=== PATIENT | male | born 1945 | race Caucasian/White ===

== ENCOUNTER 2016-11-13 12:30 | Observation (INO) | payer MEDICARE, BC ==
[2016-11-13] VITALS (7 sets, daily range): BP systolic 99–114; BP diastolic 53–59; PULSE 69–82; RESP 16–20; TEMP 96.8–98.5; O2SAT 96–100
[~2016-11-13] VITALS: Ht 177.8 cm; Wt 92.3 kg
[~2016-11-13 12:30] MED LIST: ATOR40TA16 PO; CLON0.5T PO; CYAN100017 PO; FOLI400T PO; IPRAAER INH; METF850T PO; MILK200C; NADO20TA PO; OMEG100010; PANT40TA3 PO; VENL150C39 PO; VITA10007 PO; VITA400C5; VITA500030 CHEW; test strips
--- NOTE | 2016-11-13 12:44 | PD ---
Physical Exam Date Seen by Provider: Nov 13, 2016 Time Seen by Provider: 12:40 Narrative 71 YOWM ON [facility] FOR PORTAL VEIN THROMBOSIS . NOW RECTAL BLEEDING FOR 2-3 DAYS. H/O ORAL CA WITH POST NODES. SOME ABD CRAMPIMG 11/20. NO F/C, N/V. NO SYNCOPE. VSS. AWAITING BED PLACEMENT. Data Data Last Documented VS Vital Signs Date Time Temp Pulse Resp B/P Pulse Ox O2 Delivery O2 Flow Rate FiO2 11/13/16 12:35 97.5 82 20 99/57 96 Room Air [facility] Medical Record Reviewed: Yes Supervised Visit with SUDHA: Yes Abdi Moody Nov 13, 2016 12:44
[2016-11-13] MEDS ORDERED: SODIUM CHLORIDE 0.9% FLUSH 10 ML FLUSH IVF PRN (15:45)
[2016-11-13] MEDS ORDERED: ONDANSETRON HCL 4 MG/2 ML VIAL IVP ONE (15:45)
[2016-11-13] MEDS ORDERED: PANTOPRAZOLE SODIUM 40 MG VIAL IVP ONE (15:45)
--- NOTE | 2016-11-13 15:51 | PD ---
HPI Chief Complaint: GI Complaint Time Seen by Provider: 15:34 Travel History International Travel<30 days: No Contact w/Intl Traveler<30days: No Traveled to known affect area: No History of Present Illness HPI This patient comes to the emergency room because he has had liquid black stool for the last 3 days. He has history of frequent GI bleed. He has history of liver cirrhosis and quit drinking alcohol many years ago. He has esophageal varices and had endoscopy 1 month ago. He was not bleeding at the time. No bright red rectal bleeding. No hematemesis or vomiting. Severity is moderate. No alleviating factors. Duration 3 days. Patient takes Eliquis for history of portal vein thrombosis. PFSH Past Medical History Cancer: Yes Cardiovascular Problems: Yes (CARDIOMYOPATHY, STENT) Cirrhosis: Yes COPD: Yes Diabetes: Yes Endocrine: Yes Genitourinary: No Hepatitis: No Hiatal Hernia: No Immune Disorder: No Medical other: Yes (Blood clot portal vein) Musculoskeletal: Yes (SPINAL STENOSIS, ARTHRITIS) Neurologic: No Psychiatric: Yes (ANXIETY, DEPRESSION) Respiratory: Yes (COPD, SOB, PNEUMONIA, ON O2 2-3 L) Thyroid Disease: No Tetanus Vaccination: < 5 Years Influenza Vaccination: Yes ?: Not Past Surgical History Abdominal Surgery: Yes (PEG TUBE AND REMOVED, HERNIA REPAIR AND CLOSE TRACK FROM TUBE) AICD: No Body Medical Devices: STENT, VIDEO CAMERA PILL SWALLOWED 12/07/15 Cardiac Surgery: Yes (CARDIAC STENT) Eye Surgery: Yes (BILAT CATARACT SX) Joint Replacement: No Oral Surgery: Yes (oral CA) Pacemaker: No Social History Alcohol Use: No Tobacco Use: No Substance Use: No Allergies-Medications (Allergen,Severity, Reaction): Coded Allergies: No Known Allergies (Unverified , 11/13/16) Reported Meds & Prescriptions Reported Meds & Active Scripts Active Reported Budesonide Neb 0.5 Mg/2 Ml Neb 0.5 Mg NEB BID NEB Perforomist Neb (Formoterol Fumarate) 20 Mcg/2 Ml Neb 1 Nebule INH BID Cortizone-10 Eczema (Hydrocortisone (Topical)) 1 % Lot 1 Applic TOPICAL DAILY PRN Fish Oil ([place]-3 Fatty Acids) 1,200 Mg Cap 1,200 Mg PO DAILY Pradaxa (Dabigatran) 150 Mg Cap 150 Mg PO BID Milk Thistle 300 Mg Cap 300 Mg PO BID Clonazepam 0.5 Mg Tab 0.5 Mg PO DAILY PRN D 5000 (Cholecalciferol) 5,000 Unit Cap 5,000 Units PO DAILY Folic Acid 400 Mcg Tab 400 Mcg PO DAILY B-12 (Cyanocobalamin) 1,000 Mcg Cap 1,000 Mcg PO DAILY Combivent Respimat Inh (Ipratropium-Albuterol Inh) 20-100 Snf/Act Aero 1 Puff INH QID PRN Vitamin C (Ascorbic Acid) 1,000 Mg Tab 1,000 Mg PO Venlafaxine ER 24 HR (Venlafaxine HCl) 150 Mg Cap 150 Mg PO DAILY Pantoprazole (Pantoprazole Sodium) 40 Mg Tab 40 Mg PO BID PRN Nadolol 20 Mg Tab 20 Mg PO DAILY Metformin (Metformin HCl) 850 Mg Tab 850 Mg PO BIDPC With meals Atorvastatin (Atorvastatin Calcium) 40 Mg Tab 40 Mg PO HS Review of Systems General / Constitutional: No: Fever Eyes: No: Visual changes HENT: No: Headaches Cardiovascular: No: Chest Pain or Discomfort Respiratory: No: Shortness of Breath Gastrointestinal: Positive: Other (liquid black stool), No: Abdominal Pain Genitourinary: No: Dysuria Musculoskeletal: No: Pain Skin: No Rash Neurologic: No: Weakness Psychiatric: No: Depression Endocrine: No: Polydipsia Hematologic/Lymphatic: No: Easy Bruising Physical Exam Narrative GENERAL: Well-nourished, well-developed patient in no apparent distress. SKIN: Focused skin assessment reveals no rash and nodules. Skin is Warm and dry. HEAD: Atraumatic. Normocephalic. EYES: Pupils equal and round. No scleral icterus. No injection or drainage. ENT: No nasal bleeding or discharge. Mucous membranes pink and moist. NECK: Trachea midline. No JVD. CARDIOVASCULAR: Regular rate and rhythm. No murmur appreciated. RESPIRATORY: No accessory muscle use. Clear to auscultation. Breath sounds equal bilaterally. GASTROINTESTINAL: Abdomen soft, non-tender, nondistended. Hepatic and splenic margins not palpable. MUSCULOSKELETAL: No obvious deformities. No clubbing. No cyanosis. No edema. NEUROLOGICAL: Awake and alert. No obvious cranial nerve deficits. Motor grossly within normal limits. Normal speech. PSYCHIATRIC: Appropriate mood and affect; insight and judgment normal. Rectal: Normal tone, no mass. Black colored stool is present Data Data Last Documented VS Vital Signs Date Time Temp Pulse Resp B/P Pulse Ox O2 Delivery O2 Flow Rate FiO2 11/13/16 16:44 18 99 Nasal Cannula 2 11/13/16 15:19 98.5 69 113/53 Orders Basic Metabolic Panel (Bmp) (11/13/16 15:43) Complete Blood Count With Diff (11/13/16 15:43) Prothrombin Time / Inr (Pt) (11/13/16 15:43) Act Partial Throm Time (Ptt) (11/13/16 15:43) Type And Screen (11/13/16 15:43) Ecg Monitoring (11/13/16 15:43) Iv Access Insert/Monitor (11/13/16 15:43) Oximetry (11/13/16 15:43) Ondansetron Inj (Zofran Inj) (11/13/16 15:45) Pantoprazole Inj (Protonix Inj) (11/13/16 15:45) Sodium Chloride 0.9% Flush (Ns Flush) (11/13/16 15:45) Sodium Chlor 0.9% 1000 Ml Inj (Ns 1000 M (11/13/16 16:00) Admit Order (Ed Use Only) (11/13/16 17:22) Labs Laboratory Tests Test 11/13/16 16:30 White Blood Count 7.5 TH/MM3 Red Blood Count 3.16 MIL/MM3 Hemoglobin 10.2 GM/DL Hematocrit 30.8 % Mean Corpuscular Volume 97.3 FL Mean Corpuscular Hemoglobin 32.2 PG Mean Corpuscular Hemoglobin 33.1 % Concent Red Cell Distribution Width 17.4 % Platelet Count 103 TH/MM3 Mean Platelet Volume 7.8 FL Neutrophils (%) (Auto) 72.7 % Lymphocytes (%) (Auto) 17.2 % Monocytes (%) (Auto) 7.3 % Eosinophils (%) (Auto) 2.5 % Basophils (%) (Auto) 0.3 % Neutrophils # (Auto) 5.5 TH/MM3 Lymphocytes # (Auto) 1.3 TH/MM3 Monocytes # (Auto) 0.5 TH/MM3 Eosinophils # (Auto) 0.2 TH/MM3 Basophils # (Auto) 0.0 TH/MM3 CBC Comment DIFF FINAL Differential Comment Prothrombin Time 11.7 SEC Prothromb Time International 1.1 RATIO Ratio Activated Partial 25.4 SEC Thromboplast Time Sodium Level 139 MEQ/L Potassium Level 4.3 MEQ/L Chloride Level 106 MEQ/L Carbon Dioxide Level 25.9 MEQ/L Anion Gap 7 MEQ/L Blood Urea Nitrogen 21 MG/DL Creatinine 0.63 MG/DL Estimat Glomerular Filtration 126 ML/MIN Rate Random Glucose 104 MG/DL Calcium Level 9.3 MG/DL [facility] Medical Decision Making Medical Screen Exam Complete: Yes Emergency Medical Condition: Yes Medical Record Reviewed: Yes Differential Diagnosis Variceal bleeding, gastric ulcer, esophagitis Narrative Course I have reviewed the patient's electronic medical record. Reviewed his endoscopy from November [address] Darnell IV placed CBC shows hemoglobin of 10.2 and platelet count of 103 Metabolic profile is normal Coagulation studies are normal but he takes a blood thinner I gave him IV Zofran and IV Protonix and 1 L normal saline IV Has Hemoccult positive stool On recheck he is doing okay but will require admission given the fact that he has a GI bleed and is on a blood thinner and has mild anemia and also mild thrombocytopenia [facility] Internal Pos. & Neg. Controls: Passed Fecal Specimen Occult Blood: Positive Diagnosis Primary Impression: GI bleed Qualified Code: K92.2 - Gastrointestinal hemorrhage, unspecified gastrointestinal hemorrhage type Additional Impression: Cirrhosis of liver Qualified Code: K70.30 - Alcoholic cirrhosis of liver without ascites Admitting Information Admitting Physician Requests: Admit Alex Gross MD Nov 13, 2016 15:51
[2016-11-13] MEDS ORDERED: SODIUM CHLOR 0.9% 1000 ML INJ 1,000 ML IV ONE (16:00)
[2016-11-13 16:43] LABS: AUTOMATED NEUTROPHIL # 5.5 TH/MM3 (1.8-7.7); BASOPHIL % 0.3 % (0.0-2.0); EOSINOPHIL # 0.2 TH/MM3 (0-0.4); EOSINOPHIL % 2.5 % (0.0-4.0); HEMATOCRIT 30.8 % (39.0-51.0); HEMO FLAGS DIFF FINAL; LYMPH % 17.2 % (9.0-44.0); LYMPHOCYTE # 1.3 TH/MM3 (1.0-4.8); MEAN CELL VOLUME 97.3 FL (80.0-100.0); MEAN CORPUSCULAR HEMOGLOBIN 32.2 PG (27.0-34.0); MEAN CORPUSCULAR HGB CONC 33.1 % (32.0-36.0); MONO % 7.3 % (0.0-8.0); NEUT % 72.7 % (16.0-70.0); PLATELET COUNT 103 TH/MM3 (150-450); RED BLOOD COUNT 3.16 MIL/MM3 (4.50-5.90); RED CELL DISTRIBUTION WIDTH 17.4 % (11.6-17.2); WHITE BLOOD COUNT 7.5 TH/MM3 (4.0-11.0)
[2016-11-13 17:00] LABS: APTT (PATIENT) 25.4 SEC (24.3-30.1); INTERNATIONAL NORMALIZED RATIO 1.1 RATIO; PROTHROMBIN TIME - PATIENT 11.7 SEC (9.8-11.6)
[2016-11-13] MEDS ORDERED: CLON0.5T PO (17:02)
[2016-11-13] MEDS ORDERED: D 50CAP PO (17:02)
[2016-11-13] MEDS ORDERED: MILK300C PO (17:05)
[2016-11-13 17:07] LABS: BICARBONATE 25.9 MEQ/L (21.0-32.0); POTASSIUM 4.3 MEQ/L (3.5-5.1)
[2016-11-13] MEDS ORDERED: PRAD150C PO (17:11)
[2016-11-13] MEDS ORDERED: FISH120014 PO (17:18)
[2016-11-13] MEDS: SODIUM CHLOR 0.9% 1000 ML INJ 1,000 ML IV SCH ×3 (17:20→17:54)
[2016-11-13] MEDS ORDERED: FORM20NE NEB (17:21)
[2016-11-13] MEDS ORDERED: BUDE0.5S NEB (17:21)
[2016-11-13] MEDS ORDERED: CORTLOT TOPICAL (17:21)
[2016-11-13] MEDS ORDERED: ACETAMINOPHEN/HYDROcodone 325 MG/5 MG TAB PO PRN (17:30)
[2016-11-13] MEDS ORDERED: VENO20IN IV (17:30)
[2016-11-13] MEDS ORDERED: DOCUSATE SODIUM 100 MG CAP PO PRN (17:30)
[2016-11-13] MEDS ORDERED: ACETAMINOPHEN/HYDROcodone 325 MG/7.5 MG TAB PO PRN (17:30)
[2016-11-13] MEDS ORDERED: SODIUM CHLORIDE 0.9% FLUSH 10 ML FLUSH IV FLUSH PRN (17:30)
[2016-11-13] MEDS ORDERED: ONDANSETRON HCL 4 MG/2 ML VIAL IVP PRN (17:30)
[2016-11-13] MEDS ORDERED: ACETAMINOPHEN 325 MG TAB PO PRN (17:30)
[2016-11-13] MEDS ORDERED: NALOXONE HCL 0.4 MG/ML AMP IV PRN (17:30)
[2016-11-13] MEDS ORDERED: MORPHINE SULFATE 4 MG/ML INJ IV PRN (17:30)
--- NOTE | 2016-11-13 17:38 | HHI.HP ---
HPI Service [facility] Primary Care Physician Gabriela Giles MD Admission Diagnosis gi bleed, cirrhosis Diagnoses: Chief Complaint: GI bleeding Travel History International Travel<30 Days: No Contact w/Intl Traveler <30 Da: No Traveled to Known Affected Are: No History of Present Illness 71-year-old male with history of Liver cirrhosis, Esophageal varices, Portal vein thrombosis on Eliquis, Anemia, Oral cancer s/p resection/radiation, COPD, Chronic Respiratory Failure on 3L NC, Diabetes mellitus, CAD with stent, Arthritis, Anxiety/depression, presents with a 3 day history of liquid black stools. Denies any bright red rectal bleeding. He's been experiencing intermittent lower abdominal pain described as mild cramping. Denies any nausea/ vomiting or hematemesis. He has a history of esophageal varices and has prior history of GI bleeding. His last endoscopy was 1 month ago and the patient was not bleeding at that time. He is currently on Eliquis for portal vein thrombosis however reportedly his lab director Dr. Gresham at [facility] was supposed to change him from Eliquis to Pradaxa today. He denies taking any NSAIDs. Since his arrival to the ED, hemoglobin 10.2, hemoccult positive in the ED. The patient is known to [facility], Dr. Hendrix. He has no other medical complaints at this time. Review of Systems Except as stated in HPI: all other systems reviewed are Neg Past Family Social History Past Medical History Liver cirrhosis Esophageal varices Portal vein thrombosis Oral cancer s/p resection, radiation, short course of chemo in 2012 COPD Chronic respiratory failure on 3L NC Diabetes mellitus CAD with stent in 2004 Arthritis Anxiety/depression Anemia on iron infusions at [facility] Past Surgical History Peg tube placement and removal Hernia repair Cardiac stent Bilateral cataract surgery Oral Cancer Resection Endoscopies Reported Medications [place] 3 1000 mg ([place]-3 Fatty Acids) 1 Cap Cap Milk Thistle 200 Mg Cap Folic Acid 400 Mcg Tab 400 Mcg PO DAILY E-400 (Vitamin E) 400 Unit Cap B-12 (Cyanocobalamin) 1,000 Mcg Cap 1,000 Mcg PO DAILY Combivent Respimat Inh (Ipratropium-Albuterol Inh) 20-[address] Half-[address]/Act Aero 1 Puff INH QID Vitamin D3 (Cholecalciferol) 5,000 Unit Chew 5,000 Units CHEW DAILY Vitamin C (Ascorbic Acid) 1,000 Mg Tab 1,000 Mg PO Venlafaxine ER 24 HR (Venlafaxine HCl) 150 Mg Cap 150 Mg PO DAILY Pantoprazole (Pantoprazole Sodium) 40 Mg Tab 40 Mg PO BID PRN Nadolol 20 Mg Tab 20 Mg PO DAILY Metformin (Metformin HCl) 850 Mg Tab 850 Mg PO BIDPC With meals Atorvastatin (Atorvastatin Calcium) 40 Mg Tab 40 Mg PO HS Allergies: Coded Allergies: No Known Allergies (Unverified , 11/13/16) Active Ordered Medications Current Medications Medications (Trade) Dose Ordered Sig/Felicia Route Start Time Stop Time Status Last Admin Sodium Chloride 2 ml 2 ml UNSCH PRN IVF 11/13/16 15:45 (NS 1000 ml Inj) 1,000 ml @ 100 mls/hr Q10H IV 11/13/16 17:20 UNV (NS Flush) 2 ml UNSCH PRN IV FLUSH 11/13/16 17:30 UNV (NS Flush) 2 ml BID IV FLUSH 11/13/16 21:00 UNV (Zofran Inj) 4 mg Q6H PRN IVP 11/13/16 17:30 UNV (Colace) 100 mg Q12H PRN PO 11/13/16 17:30 UNV (Tylenol) 650 mg Q6H PRN PO 11/13/16 17:30 UNV ([place] 5-325 Mg) 1 tab Q6H PRN PO 11/13/16 17:30 UNV ([place] 7.5-325 Mg) 1 tab Q6H PRN PO 11/13/16 17:30 UNV (Morphine Inj) 2 mg Q4H PRN IV 11/13/16 17:30 UNV (Narcan Inj) 0.4 mg UNSCH PRN IV 11/13/16 17:30 UNV Family History Father with [place], heart disease, in his mid 60s Mother with cancer, possibly melanoma, in her mid 70s Social History Denies any tobacco, alcohol, or illicit drug use. Physical Exam Vital Signs Vital Signs Date Time Temp Pulse Resp B/P Pulse Ox O2 Delivery O2 Flow Rate FiO2 11/13/16 16:44 18 99 Nasal Cannula 2 11/13/16 15:19 16 11/13/16 15:19 98.5 69 16 113/53 99 Nasal Cannula 2 11/13/16 12:35 97.5 82 20 99/57 96 Room Air Physical Exam GENERAL: Well-nourished, well-developed pleasant male patient in NAD. SKIN: Warm and dry. No rash. HEAD: Normocephalic. Atraumatic. EYES: Pupils equal and round. No scleral icterus. No injection or drainage. ENT: No nasal bleeding or discharge. Mucous membranes pink and moist. NECK: Supple. Trachea midline. Prior surgical scarring and skin flap at midline. CARDIOVASCULAR: Regular rate and rhythm. S1, S2 noted. No murmur appreciated. RESPIRATORY: No accessory muscle use. Fair air entry bilaterally, Clear to auscultation. Breath sounds equal bilaterally. GASTROINTESTINAL: Abdomen soft, nondistended, tympanic abdomen, mild epigastric and diffuse lower abdominal TTP. Normoactive bowel sounds x4. MUSCULOSKELETAL: No obvious deformities. Extremities without clubbing, cyanosis , or edema. NEUROLOGICAL: Awake and alert. No obvious cranial nerve deficits. Motor grossly within normal limits. Moves all extremities spontaneously. Normal speech. PSYCHIATRIC: Appropriate mood and affect; insight and judgment normal. Laboratory Laboratory Tests Test 11/13/16 16:30 White Blood Count 7.5 Red Blood Count 3.16 Hemoglobin 10.2 Hematocrit 30.8 Mean Corpuscular Volume 97.3 Mean Corpuscular Hemoglobin 32.2 Mean Corpuscular Hemoglobin 33.1 Concent Red Cell Distribution Width 17.4 Platelet Count 103 Mean Platelet Volume 7.8 Neutrophils (%) (Auto) 72.7 Lymphocytes (%) (Auto) 17.2 Monocytes (%) (Auto) 7.3 Eosinophils (%) (Auto) 2.5 Basophils (%) (Auto) 0.3 Neutrophils # (Auto) 5.5 Lymphocytes # (Auto) 1.3 Monocytes # (Auto) 0.5 Eosinophils # (Auto) 0.2 Basophils # (Auto) 0.0 CBC Comment DIFF FINAL Differential Comment Prothrombin Time 11.7 Prothromb Time International 1.1 Ratio Activated Partial 25.4 Thromboplast Time Sodium Level 139 Potassium Level 4.3 Chloride Level 106 Carbon Dioxide Level 25.9 Anion Gap 7 Blood Urea Nitrogen 21 Creatinine 0.63 Estimat Glomerular Filtration 126 Rate Random Glucose 104 Calcium Level 9.3 Result Diagram: 11/13/16 1630 11/13/16 1630 Assessment and Plan Assessment and Plan 71-year-old male with history of Liver cirrhosis, Esophageal varices, Portal vein thrombosis on Eliquis, Anemia, Oral cancer s/p resection/radiation, COPD, Chronic Respiratory Failure on 3L NC, Diabetes mellitus, CAD with stent, Arthritis, Anxiety/depression, presents with a 3 day history of liquid black stools. GI Bleeding: black liquid stools. Possible esophageal varices bleed. Hemoccult positive in the ED. -Hold patient's Eliquis. -Hgb 10.2, monitor serial H&H q6h. Transfuse if Hgb < 8.0 -Clear liquid diet for now, NPO after midnight. -Start IV Protonix 40mg bid, plan to change to drip if patient's hemoglobin drops or he develops hematemesis consider Octreotide -Continue patient's Nadalol if BP permits (hold if SBP < 110) -Consult patient's lead dental assistant Dr. Ruma Lawson on Chronic Anemia: Hgb 10.2. Secondary to GI bleeding as above. Patient with hx of iron deficient anemia, sees [facility] Dr. Gresham, receives outpatient IV iron infusions -monitor H&H as above -transfuse if Hgb < 8.0 -continue outpatient f/up with hematology Portal Vein Thrombosis: managed by lab director Dr. Gresham, reportedly supposed to switch from Eliquis to Pradaxa today -holding anticoagulation with GI bleeding as above -restart anticoagulation only when cleared by GI -continue outpatient f/up with hematology Liver Cirrhosis: chronic -monitor LFTs COPD, Chronic Respiratory Failure on 3L NC: chronic, stable -continue patient's budesonide and formoterol nebs bid -duonebs prn -continue O2 Diabetes Mellitus: chronic, hold patient's metformin for now -monitor Accu-cheks, cover with SSI. CAD/Hypertension/Hyperlipidemia: chronic -continue patient's statin and nadolol (with hold parameters) -patient does not take aspirin Depression: chronic -continue patient's Venlafaxine DVT Prophylaxis: teds/SCDs, avoid chemical prophylaxis with GI bleeding. Written by Nadia Price, acting as scribe for Dr. Walter on 11/13/16 at 17:48. Discussed Condition With Patient, ER MD Physician Certification 2 Midnight Certification Type: Admission for Inpatient Services Order for Inpatient Services The services are ordered in accordance with Medicare regulations or non- Medicare payer requirements, as applicable. In the case of services not specified as inpatient-only, they are appropriately provided as inpatient services in accordance with the 2-midnight benchmark. Estimated LOS (days): 3 days is the estimated time the patient will need to remain in the hospital, assuming treatment plan goals are met and no additional complications. Post-Hospital Plan: Home Nadia Price PA-C Nov 13, 2016 5:38 pm
[2016-11-13] MEDS ORDERED: HYDROCORTISONE 1% LOTN 120 ML BTL TOPICAL PRN (18:15)
[2016-11-13] MEDS ORDERED: clonazePAM 0.5 MG TAB PO PRN (18:15)
[2016-11-13] MEDS ORDERED: RESP: ALBUTEROL 2.5 MG/IPRATROPIUM 0.5 MG NEB (PRN) NEB (18:30)
[2016-11-13] MEDS ORDERED: GLUCAGON 1 MG/ML VIAL OTHER PRN (18:30)
[2016-11-13] MEDS ORDERED: DEXTROSE 50% IN WATER 50 ML VIAL(D50) IV PUSH PRN (18:30)
[2016-11-13] MEDS ORDERED: FORMOTEROL 20 MCG NEB SCH (20:00)
[2016-11-13] MEDS: RESP: BUDESONIDE 0.5 MG/2 ML NEB NEB SCH (20:06)
[2016-11-13] MEDS: SODIUM CHLORIDE 0.9% FLUSH 10 ML FLUSH IV FLUSH SCH (21:00)
[2016-11-13] MEDS: [UNRECOGNIZED DRUG - OTHER] INH SCH (21:00)
[2016-11-13] MEDS: INSULIN ASPART SUPPLEMENTAL SCALE SQ SCH (21:00)
[2016-11-13] MEDS: ATORVASTATIN 40 MG TAB PO SCH (21:54)
[2016-11-13] MEDS: NADOLOL 20 MG TAB PO SCH (21:54)
[2016-11-13 23:04] LABS: HEMATOCRIT 25.8 % (39.0-51.0)
[2016-11-13 23:06] LABS: REVIEW FLAG FINAL
[2016-11-14] VITALS (8 sets, daily range): BP systolic 94–110; BP diastolic 54–69; PULSE 68–77; RESP 16–18; TEMP 96.2–97.7; O2SAT 97–100
[2016-11-14] MEDS: PANTOPRAZOLE SODIUM 40 MG VIAL IV PUSH SCH ×2 (05:00→17:00)
[2016-11-14] MEDS: INSULIN ASPART SUPPLEMENTAL SCALE SQ SCH ×4 (05:24→20:16)
[2016-11-14 05:52] LABS: AUTOMATED NEUTROPHIL # 2.6 TH/MM3 (1.8-7.7); BASOPHIL % 0.7 % (0.0-2.0); EOSINOPHIL # 0.2 TH/MM3 (0-0.4); EOSINOPHIL % 4.2 % (0.0-4.0); HEMATOCRIT 25.7 % (39.0-51.0); LYMPH % 21.4 % (9.0-44.0); LYMPHOCYTE # 0.9 TH/MM3 (1.0-4.8); MEAN CELL VOLUME 97.4 FL (80.0-100.0); MEAN CORPUSCULAR HEMOGLOBIN 33.7 PG (27.0-34.0); MEAN CORPUSCULAR HGB CONC 34.6 % (32.0-36.0); MONO % 8.3 % (0.0-8.0); NEUT % 65.4 % (16.0-70.0); PLATELET COUNT 80 TH/MM3 (150-450); RED BLOOD COUNT 2.64 MIL/MM3 (4.50-5.90); RED CELL DISTRIBUTION WIDTH 17.3 % (11.6-17.2)
[2016-11-14 06:05] LABS: HEMO FLAGS AUTO DIFF
[2016-11-14] MEDS: PANTOPRAZOLE INJ 80 MG in SODIUM CHLORIDE 0.9% INJ 100 ML IV PRN ×2 (06:16→22:52)
[2016-11-14 06:22] LABS: ALKALINE PHOSPHATASE 85 U/L (45-117); ALT (GPT) 41 U/L (12-78); ANION GAP 9 MEQ/L (5-15); AST (GOT) 30 U/L (15-37); BICARBONATE 24.3 MEQ/L (21.0-32.0); BLOOD UREA NITROGEN 13 MG/DL (7-18); CHLORIDE 110 MEQ/L (98-107); GLOMERULAR FILTRATION RATE 129 ML/MIN (>89); POTASSIUM 3.7 MEQ/L (3.5-5.1); SODIUM (NA) 143 MEQ/L (136-145); TOTAL BILIRUBIN ADULT 0.6 MG/DL (0.2-1.0)
[2016-11-14 07:55] LABS: ACANTHOCYTES OCC (NORMAL); KERATOCYTES OCC (NORMAL); OVALOCYTES 1+ (NORMAL); PLATELET ESTIMATE SMEAR LOW (NORMAL); PLATELET MORPHOLOGY NORMAL (NORMAL); SCAN/DIFF AUTO DIFF CONFIRMED
[2016-11-14] MEDS: RESP: BUDESONIDE 0.5 MG/2 ML NEB NEB SCH ×2 (08:47→20:27)
[2016-11-14] MEDS: [UNRECOGNIZED DRUG - OTHER] INH SCH ×2 (09:00→21:00)
[2016-11-14] MEDS: SODIUM CHLORIDE 0.9% FLUSH 10 ML FLUSH IV FLUSH SCH ×2 (09:00→20:17)
--- NOTE | 2016-11-14 09:30 | MB ---
cc: LAURO VIEYRA M.D., GREGORY J. M.D. KIM, KIRSTEN R. MD DATE OF CONSULTATION: 11/14/2016 DATE OF : 1945 HISTORY OF PRESENT ILLNESS The patient is a 71-year-old white male I was asked to see for further evaluation and management of GI bleeding. He has a history of cirrhosis, presumably due to alcohol. He has had esophageal varices and has had documented portal vein thrombosis this past April. He was started on Eliquis about a month ago by his auto hiker [place] [facility]. Four days ago he began experiencing melena with lightheadedness. He stopped taking the Eliquis 2 days ago. He came in yesterday because of melanotic stool and lightheadedness. The bleeding seems to have slowed. He has passed only a scant amount of black thicker stool compared to the black thin liquid he had been passing. PAST MEDICAL HISTORY The medical history is otherwise significant for: 1. Oral cancer status post resection and radiation. 2. COPD, require 3 liters nasal cannula chronically. 3. Diabetes mellitus. 4. Coronary artery disease, status post stenting. 5. Arthritis. 6. Anxiety. 7. Depression. PAST SURGICAL HISTORY 1. PEG tube placement and removal. 2. Herniorrhaphy. 3. Cardiac stent. 4. Cataract surgery. 5. Oral cancer with resection. 6. Multiple endoscopic procedures, the most recent of which was October 09, 2016. This showed portal hypertensive gastropathy. MEDICATIONS Medications on admission: 1. [place]-3. 2. Milk thistle. 3. Folic acid 400 mcg daily. 4. Vitamin-E 400 units daily. 5. B12. 6. Combivent. 7. Vitamin-D3. 8. Vitamin-C. 9. Venlafaxine. 10.Pantoprazole 40 mg b.i.d. p.r.n. 11.Nadolol 20 mg daily. 12.Metformin 850 mg b.i.d. 13.Atorvastatin 40 mg daily. ALLERGIES None known to medications. SOCIAL HISTORY Tobacco use none. Alcohol use none since the . FAMILY HISTORY Heart disease and melanoma. REVIEW OF SYSTEMS No history of seizures or strokes. No vision difficulties. He has had the lightheadedness. No chest pains. No change in his chronic dyspnea and no recent coughing, out of the ordinary. No abdominal pain. No urologic symptoms. No history of pancreatic disease or thyroid disease. He has had no rashes or joint pains of any sort. PHYSICAL EXAMINATION VITAL SIGNS: Weight is 90.3 kg. Temperature 97.6, pulse 68, respiratory rate 18, blood pressure 106/69. Saturation 98% on two liters. GENERAL: He is alert. He is oriented x3. HEENT: He is anicteric. Extraocular motions are intact. There is deformation of the jaw, especially on the left. LYMPH NODES: I appreciate no submandibular, cervical, supraclavicular, axillary or epitrochlear adenopathy. LUNGS: Clear to auscultation. HEART: Regular rate and rhythm with no gross murmur or gallop. ABDOMEN: Good bowel sounds. No bruit. The abdomen is soft with very mild epigastric tenderness. No masses or hepatosplenomegaly are noted. EXTREMITIES: No pedal edema, Dupuytren's contractures or palmar erythema. RECTAL: Good sphincter tone. No masses, no tenderness, and only a scant amount of black very soft stool that tests hemoccult positive. LABORATORY Laboratory studies on admission yesterday afternoon: White count 7.5, hemoglobin 10.2, MCV 97.3, platelets 103. Yesterday evening hemoglobin 9.0 and this morning at 5 o'clock hemoglobin 8.9, platelets 80,000. INR on admission was 1.1 yesterday. Today sodium is 143, potassium 3.7, BUN 13, creatinine 0.62. Yesterday the BUN was 21 with a creatinine of 0.63. Liver enzymes today are normal. Albumin is low at 2.8. IMAGING No radiologic studies have been performed. IMPRESSION/RECOMMENDATIONS Melena, in this patient who has been taking Eliquis because of a portal vein thrombus. He took the medication for one month and stopped because of the recent bleeding. The hemoglobin had dropped a bit and has stabilized. His BUN to creatinine ratio has improved, suggesting no active upper GI bleeding at this time. Based on his previous endoscopy June 08 he has portal hypertensive gastropathy. I suspect the recent bleed is likely related to the same process. There is no indication for a follow-up panendoscopy at this time. I will check with radiology to see what would be the most appropriate study to evaluate the portal vein at this point, whether it should be a CT, an ultrasound or an MRI. The patient's MELD score at this point is 7. When I spoke to the emergency room nurse last evening between 1800 and 1815 I had ordered a Sandostatin bolus followed by a drip. There is no mention in the chart of this conversation or the ordering of that product. I will talk to the people in the emergency room now to find out what happened. At this point, fortunately, there is no need for this product. Protonix IV has been started. This may be changed to the oral formulation and he may start a clear liquid diet. Will follow along closely. MD KADEEM Gudino/CHAPINCITO /8:28 AM /9:13 AM
[2016-11-14] MEDS ORDERED: DIATRIZOATE MEGLUM/DIATRIZOATE SOD 9 ML CUP PO ONE (11:00)
[2016-11-14 11:05] LABS: HEMATOCRIT 27.9 % (39.0-51.0)
[2016-11-14 11:06] LABS: REVIEW FLAG FINAL
[2016-11-14] MEDS: SODIUM CHLOR 0.9% 1000 ML INJ 1,000 ML IV SCH (11:15)
[2016-11-14] MEDS: VENLAFAXINE HCL XR 75 MG CAP PO SCH (11:17)
--- NOTE | 2016-11-14 14:14 | HHI.PR ---
Subjective Remarks Resting in bed comfortably, at the bedside He reported 3 black bowel movement, the nurse was not aware of Hemoglobin stable, I discussed with patient and his the nurse and with our [facility] Patient going for CT scan of the abdomen to follow up on the portal vein thrombosis Objective Vitals Vital Signs Date Time Temp Pulse Resp B/P Pulse Ox O2 Delivery O2 Flow Rate FiO2 11/14/16 12:00 96.2 72 16 110/61 97 11/14/16 08:50 99 Nasal Cannula 2.00 11/14/16 08:00 96.8 73 16 95/57 100 11/14/16 04:00 97.6 68 18 106/69 98 11/14/16 00:00 96.7 68 18 94/57 100 11/13/16 21:32 97 Nasal Cannula 2.00 11/13/16 20:30 96.8 69 17 107/59 100 11/13/16 19:59 98.4 69 16 108/54 97 11/13/16 18:09 69 16 114/54 96 11/13/16 16:44 18 99 Nasal Cannula 2 11/13/16 15:19 16 11/13/16 15:19 98.5 69 16 113/53 99 Nasal Cannula 2 I/O 11/13/16 11/13/16 11/13/16 11/14/16 11/14/16 11/14/16 07:00 15:00 23:00 07:00 15:00 23:00 Intake Total 100 ml Balance 100 ml Intake IV Total 100 ml # Voids 1 2 Result Diagram: 11/14/16 1021 11/14/16 0500 Objective Remarks GENERAL: This is a well-nourished, well-developed patient, in no apparent distress. SKIN: No rashes, warm and dry HEAD: Atraumatic. Normocephalic. EYES: Pupils equal round and reactive. Extraocular motions intact. No scleral icterus. ENT: Nose without bleeding, or drainage, Airway patent. NECK: Trachea midline. Supple CARDIOVASCULAR: Regular rate and rhythm without murmurs, gallops, or rubs. RESPIRATORY: Fair air entry bilaterally. No wheezes, rales, or rhonchi. GASTROINTESTINAL: Abdomen soft, no significant tenderness today, nondistended. Positive bowel sounds MUSCULOSKELETAL: Extremities without clubbing, cyanosis, or edema. Pedal pulses appreciated NEUROLOGICAL: Awake and alert. Moves all extremity. Normal speech.no focal neurological deficit A/P Assessment and Plan 71-year-old male with history of Liver cirrhosis, Esophageal varices, Portal vein thrombosis on Eliquis, Anemia, Oral cancer s/p resection/radiation, COPD, Chronic Respiratory Failure on 3L NC, Diabetes mellitus, CAD with stent, Arthritis, Anxiety/depression, presents with a 3 day history of liquid black stools. GI Bleeding: black liquid stools. Possible esophageal varices bleed. Hemoccult positive in the ED. -Hold patient's Eliquis. -Hgb 10.2, monitor serial H&H q6h. Transfuse if Hgb < 8.0 -Clear liquid diet for now, NPO after midnight. -Start IV Protonix 40mg bid, plan to change to drip if patient's hemoglobin drops or he develops hematemesis consider Octreotide -Continue patient's Nadalol if BP permits (hold if SBP < 110) -Appreciate patient's er nurse Dr. Hendrix consult, recommend CT abdomen to follow up on the portal thrombosis will defer decision to stop Eliquis indefinitely for him, continue monitoring H&H, plan to switch to by mouth Protonix if stable Acute on Chronic Anemia: Hgb 10.2. Secondary to GI bleeding as above. Patient with hx of iron deficient anemia, sees [facility] Dr. Gresham, receives outpatient IV iron infusions -monitor H&H as above -transfuse if Hgb < 8.0 -continue outpatient f/up with hematology Portal Vein Thrombosis: managed by card dealer Dr. Gresham, reportedly supposed to switch from Eliquis to Pradaxa today -holding anticoagulation with GI bleeding as above -CT abdomen to follow up, decision on resuming anticoagulation per GI Liver Cirrhosis: chronic -monitor LFTs COPD, Chronic Respiratory Failure on 3L NC: chronic, stable -continue patient's budesonide and formoterol nebs bid -duonebs prn -continue O2 Diabetes Mellitus: chronic, hold patient's metformin for now -monitor Accu-cheks, cover with SSI. CAD/Hypertension/Hyperlipidemia: chronic -continue patient's statin and nadolol (with hold parameters) -patient does not take aspirin Depression: chronic -continue patient's Venlafaxine DVT Prophylaxis: teds/SCDs, avoid chemical prophylaxis with GI bleeding. Nemou,Collier MD Nov 14, 2016 14:14
[2016-11-14 16:37] LABS: HEMATOCRIT 26.2 % (39.0-51.0)
[2016-11-14 16:51] LABS: REVIEW FLAG FINAL
[2016-11-14] MEDS ORDERED: IOHEXOL 350 MG/ML 10 ML VIAL (for RAD DIAG) IV ONE (18:56)
--- NOTE | 2016-11-14 20:06 | RADRPT ---
EXAM DATE/TIME: 11/14/2016 18:40 [place] COMPARISON: No previous studies available for comparison. INDICATIONS : Evaluate for portal vein thrombosis. IV CONTRAST: 77 cc Omnipaque 350 (iohexol) IV ORAL CONTRAST: Prescribed oral contrast ingested. RADIATION DOSE: 10.85 CTDIvol (mGy) MEDICAL HISTORY : Cardiovascular disease. Chronic obstructive pulmonary disease. Cirrhosis.Diabetes. SURGICAL HISTORY : None. ENCOUNTER: Initial ACUITY: 1 day PAIN SCALE: 7/10 LOCATION: Abdomen. TECHNIQUE: Volumetric scanning of the abdomen was performed. Using automated exposure control and adjustment of the mA and/or kV according to patient size, radiation dose was kept as low as reasonably achievable to obtain optimal diagnostic quality images. FINDINGS: The liver is normal in size and has a homogeneous pattern of enhancement. There is a solitary lesion in the medial right lobe of the liver adjacent to the gallbladder fossa measuring 1.9 cm which has l obular margins and low density. Needs CT density is 40 Hounsfield units. This is nonspecific in venkata earance; a hemangioma could have such an appearance. The spleen is normal in size. No focal lesions seen. There are several varices about the spleen there are several small esophageal varices.. The splenic vein is normal in size without filling defect. At the portal confluence, there is an elongated hypod ense lesion within the lumen which measures 5.2 cm in length and extends into the superior mesenteric vein. There is no extension of this filling defect into the portal vein however. There is an abnormal appearance to the right colon with diffuse wall thickening and induration of the fat about the right colon. Wall thickness measures up to 1.7 cm in dimension. The transverse colon is normal in appearance. There is contrast in the colon down to the rectum. Several small sigmoid diverticula. Loops of small bowel are normal in diameter. The kidneys are symmetric in size. There are multiple cysts in the left kidney measuring up to 2.2 c m in diameter. No evidence of hydronephrosis. Abdominal aorta is normal in diameter. There are dif fuse wall calcifications seen in the distal abdominal aorta and proximal iliac vessels. Urinary blad maliha margins are smooth. Inguinal region is unremarkable. Visualized lower lungs are clear. As a fo antoni area of subpleural fat thickening in the anterior lower right chest which measures 1.6 cm in AP d imension. No evidence of pleural effusion. Wide windows for bony detail demonstrate the osseous str uctures to be intact. CONCLUSION: 1. There is a filling defect seen in the portal confluence characteristic of a thrombosed extending i nto the superior mesenteric vein, but no extension into the portal vein. 2. Esophageal and perisplenic varices. 3. Abnormal appearance to the right colon with diffuse prominent wall thickening and pericolonic fatt y induration. No evidence of obstruction. Yohannes Tyler MD on November 14, 2016 at 19:47 Board Certified Radiologist. This report was verified electronically.
[2016-11-14] MEDS: ATORVASTATIN 40 MG TAB PO SCH (20:17)
[2016-11-14] MEDS: NADOLOL 20 MG TAB PO SCH (21:00)
[2016-11-14 22:20] LABS: HEMATOCRIT 26.6 % (39.0-51.0)
[2016-11-14 22:27] LABS: REVIEW FLAG FINAL
[2016-11-15] VITALS (8 sets, daily range): BP systolic 96–114; BP diastolic 52–60; PULSE 64–74; RESP 17–20; TEMP 95–97; O2SAT 94–100
[2016-11-15] MEDS: PANTOPRAZOLE SODIUM 40 MG VIAL IV PUSH SCH ×2 (04:51→18:28)
[2016-11-15] MEDS: INSULIN ASPART SUPPLEMENTAL SCALE SQ SCH ×4 (05:59→21:00)
[2016-11-15] MEDS: RESP: BUDESONIDE 0.5 MG/2 ML NEB NEB SCH ×2 (08:11→19:39)
[2016-11-15] MEDS: VENLAFAXINE HCL XR 75 MG CAP PO SCH (09:00)
[2016-11-15] MEDS: [UNRECOGNIZED DRUG - OTHER] INH SCH ×2 (09:00→21:00)
[2016-11-15] MEDS: SODIUM CHLORIDE 0.9% FLUSH 10 ML FLUSH IV FLUSH SCH ×2 (09:00→21:00)
--- NOTE | 2016-11-15 09:29 | HHI.PR ---
Subjective Remarks Follow up dark tarry stool on a patient with liver cirrhosis, esophageal varices Patient stated his stool is" not as black as before"today No fever no abdominal pain, hemoglobin is stable at 9 CT abdomen has been done yesterday did show thrombosis in the mesentery vein but not extending in the portal vein, will discuss with GI regarding resuming versus stopping Pradaxa Objective Vitals Vital Signs Date Time Temp Pulse Resp B/P Pulse Ox O2 Delivery O2 Flow Rate FiO2 11/15/16 08:13 99 Nasal Cannula 2.00 11/15/16 08:00 96.2 65 20 114/58 98 11/15/16 04:00 96.3 74 17 104/54 97 11/15/16 00:00 97.0 74 17 96/52 98 11/14/16 20:29 97 Nasal Cannula 2.00 11/14/16 20:00 97.6 77 17 100/54 100 11/14/16 16:00 97.7 72 16 105/55 100 11/14/16 12:00 96.2 72 16 110/61 97 I/O 11/14/16 11/14/16 11/14/16 11/15/16 11/15/16 11/15/16 07:00 15:00 23:00 07:00 15:00 23:00 Intake Total 100 ml 220 ml 960 ml Balance 100 ml 220 ml 960 ml Intake Oral 220 ml 960 ml IV Total 100 ml # Voids 2 3 2 Result Diagram: 11/14/16 2209 11/14/16 0500 Objective Remarks GENERAL: This is a well-nourished, well-developed patient, in no apparent distress. SKIN: No rashes, warm and dry HEAD: Atraumatic. Normocephalic. EYES: Pupils equal round and reactive. Extraocular motions intact. No scleral icterus. ENT: Nose without bleeding, or drainage, Airway patent. NECK: Trachea midline. Supple CARDIOVASCULAR: Regular rate and rhythm without murmurs, gallops, or rubs. RESPIRATORY: Fair air entry bilaterally. No wheezes, rales, or rhonchi. GASTROINTESTINAL: Abdomen soft, no significant tenderness today, nondistended. Positive bowel sounds MUSCULOSKELETAL: Extremities without clubbing, cyanosis, or edema. Pedal pulses appreciated NEUROLOGICAL: Awake and alert. Moves all extremity. Normal speech.no focal neurological deficit A/P Assessment and Plan 71-year-old male with history of Liver cirrhosis, Esophageal varices, Portal vein thrombosis on Eliquis, Anemia, Oral cancer s/p resection/radiation, COPD, Chronic Respiratory Failure on 3L NC, Diabetes mellitus, CAD with stent, Arthritis, Anxiety/depression, presents with a 3 day history of liquid black stools. GI Bleeding: black liquid stools. Possible esophageal varices bleed. Hemoccult positive in the ED. -Hold patient's Eliquis. -Hgb 10.2, monitor serial H&H q6h. Transfuse if Hgb < 8.0 -Clear liquid diet for now, NPO after midnight. -Start IV Protonix 40mg bid, plan to change to drip if patient's hemoglobin drops or he develops hematemesis consider Octreotide -Continue patient's Nadalol if BP permits (hold if SBP < 110) -Appreciate patient's roll grinder Dr. Hendrix consult,CT abdomen showed thromboid in the superior mesenteric vein not extending into the portal vein, continue monitoring H&H, plan to switch to by mouth Protonix if stable, further decision for anticoagulation per GI Acute on Chronic Anemia: Has been stable at 9 today - Patient with hx of iron deficient anemia, sees [facility] Dr. Gresham, receives outpatient IV iron infusions -monitor H&H as above -transfuse if Hgb < 8.0 -continue outpatient f/up with hematology Portal Vein Thrombosis: managed by front maker Dr. Gresham, reportedly supposed to switch from Eliquis to Pradaxa today -holding anticoagulation with GI bleeding as above -CT abdomen to follow up, decision on resuming anticoagulation per GI Liver Cirrhosis: chronic -monitor LFTs COPD, Chronic Respiratory Failure on 3L NC: chronic, stable -continue patient's budesonide and formoterol nebs bid -duonebs prn -continue O2 Diabetes Mellitus: chronic, hold patient's metformin for now -monitor Accu-cheks, cover with SSI. CAD/Hypertension/Hyperlipidemia: chronic -continue patient's statin and nadolol (with hold parameters) -patient does not take aspirin Depression: chronic -continue patient's Venlafaxine DVT Prophylaxis: teds/SCDs, avoid chemical prophylaxis with GI bleeding. Discharge Planning When cleared by GI and decide on anticoagulation Nando Walter MD Nov 15, 2016 09:28
[2016-11-15] MEDS: SODIUM CHLOR 0.9% 1000 ML INJ 1,000 ML IV SCH ×2 (11:20→21:15)
--- NOTE | 2016-11-15 13:29 | HHI.GIFU ---
GI Follow-up Note Consult Follow-up Subjective: Patient laying in bed comfortably, no new complaints except has noted some mild RLQ abd discomfort past week. Stools emergency care attendant, more of a dark brown and H&H stable. I reviewed his recent CT abd&pelvis and compared to CT from [facility] last year. I discussed his case with Dr Hendrix who has followed him as outpt but pt mostly followed at [facility](Dr. Montana). The port vein thrombus appears to be chronic, at least 8-10 months. Objective: PHYSICAL EXAMINATION: Vitals signs stable No fever ABDOMEN: Soft, nondistended, mild tenderness RLQ. EXTREMITIES: No cyanosis, or edema. SKIN: Warm and dry DIRECTOR OF STUDENT LIFE: alert and oriented times three. Available Data (labs, X- Rays, Procedues) : ASSESSMENT/PLAN: 1. Melena-appears stable. Recent EGD 09/2016 showed portal gastropathy and no varices but does have varices on CT. 2. Abnormal ascending colon by CT Scan-not sure if real. Last colonoscopy done elsewhere 2014. Has chronic intermittent diarrhea but nothing new or worsened. Should have a colonoscopy. I would not be in favor of restarting any anticoagulants because of the recent bleed and chronicity of the PVT. I think he should return to [facility] and I placed a call to Dr Montana. Will do colonoscopy here if he prefers. Keep on clear liquids for now. It was a pleasure seeing Dayday Thompson Sr. Thank you for this consult. Entered by: Dylon Farnsworth MD Nov 15, 2016 13:29
[2016-11-15] MEDS: NADOLOL 20 MG TAB PO SCH (21:15)
[2016-11-15] MEDS: ATORVASTATIN 40 MG TAB PO SCH (21:15)
[2016-11-16] VITALS (7 sets, daily range): BP systolic 90–125; BP diastolic 48–59; PULSE 68–79; RESP 16–20; TEMP 96.4–97.1; O2SAT 95–100
[2016-11-16] MEDS: PANTOPRAZOLE SODIUM 40 MG VIAL IV PUSH SCH ×2 (04:24→16:15)
[2016-11-16] MEDS: SODIUM CHLOR 0.9% 1000 ML INJ 1,000 ML IV SCH (04:26)
[2016-11-16] MEDS: INSULIN ASPART SUPPLEMENTAL SCALE SQ SCH ×4 (05:46→21:00)
[2016-11-16] MEDS: [UNRECOGNIZED DRUG - OTHER] INH SCH ×2 (08:10→21:00)
[2016-11-16] MEDS: RESP: BUDESONIDE 0.5 MG/2 ML NEB NEB SCH ×2 (08:10→19:07)
[2016-11-16] MEDS: VENLAFAXINE HCL XR 75 MG CAP PO SCH (09:00)
[2016-11-16] MEDS: SODIUM CHLORIDE 0.9% FLUSH 10 ML FLUSH IV FLUSH SCH ×2 (09:00→20:26)
--- NOTE | 2016-11-16 10:09 | HHI.GIFU ---
GI Follow-up Note Consult Follow-up Subjective: Patient laying in bed comfortably, no new complaints. Denies any abdominal pain. Last BM still in toilet and appears light brown. Objective: PHYSICAL EXAMINATION: Vitals signs stable No fever ABDOMEN: Soft, nondistended, nontender. SKIN: warm and dry METROLOGY TECHNICIAN: alert and oriented times three. Available Data (labs, X- Rays, Procedues) : ASSESSMENT/PLAN: 1. Anemia-stable 2. Melena-resolved 3. cirrhosis with portal/SMV thrombosis-I was able to discuss his case this am with Dr Montana from [facility]. Eliquis recently started because there was some concern the clot may have propagated slightly on a recent scan but he agrees with discontinuing blood thinners for now and will see him back in their clinic. Will recheck CBC today and if stable I think he could go home and f/u with Dr Hendrix and Dr [place]. It was a pleasure seeing Dayday Thompson Sr. Thank you for this consult. Entered by: Dylon Farnsworth MD Nov 16, 2016 10:08
[2016-11-16 10:36] LABS: HEMATOCRIT 25.3 % (39.0-51.0); MEAN CELL VOLUME 98.4 FL (80.0-100.0); MEAN CORPUSCULAR HGB CONC 33.6 % (32.0-36.0); PLATELET COUNT 61 TH/MM3 (150-450); RED BLOOD COUNT 2.57 MIL/MM3 (4.50-5.90); WHITE BLOOD COUNT 3.1 TH/MM3 (4.0-11.0)
[2016-11-16 10:38] LABS: REVIEW FLAG FINAL
--- NOTE | 2016-11-16 10:41 | HHI.PR ---
Subjective Remarks Follow up GI bleed, anemia. Patient has no complaints at this time. States that he wants to either have the colonoscopy done or have his diet advanced. States that he had a normal bowel movement this morning with no bleeding. Objective Vitals Vital Signs Date Time Temp Pulse Resp B/P Pulse Ox O2 Delivery O2 Flow Rate FiO2 11/16/16 08:14 96 Nasal Cannula 2.00 11/16/16 08:00 97.1 69 18 95/49 95 11/16/16 00:00 96.9 73 17 90/48 96 11/16/16 00:00 96.5 76 18 94/53 100 11/15/16 20:00 97.0 73 18 110/60 100 11/15/16 19:40 94 Nasal Cannula 2.00 11/15/16 16:00 95.0 71 20 104/55 99 11/15/16 12:00 96.4 64 18 107/55 98 I/O 11/15/16 11/15/16 11/15/16 11/16/16 11/16/16 11/16/16 07:00 15:00 23:00 07:00 15:00 23:00 Intake Total 960 ml 2274 ml 1685 ml Balance 960 ml 2274 ml 1685 ml Intake Oral 960 ml 900 ml 240 ml IV Total 1374 ml 1445 ml # Voids 2 4 1 # Bowel Movements 2 Result Diagram: 11/14/16 2209 11/14/16 0500 Imaging Last Impressions Abdomen CT 11/14/16 0000 Signed Impressions: Service Date/Time: Monday, November 14, 2016 18:40 - CONCLUSION: 1. There is a filling defect seen in the portal confluence characteristic of a thrombosed extending into the superior mesenteric vein, but no extension into the portal vein. 2. Esophageal and perisplenic varices. 3. Abnormal appearance to the right colon with diffuse prominent wall thickening and pericolonic fatty induration. No evidence of obstruction. Yohannes Tyler MD Objective Remarks General: No acute distress. Heart: Regular rate and rhythm. No murmur. Lungs: Clear to auscultation bilaterally. No wheezes, rales, or rhonchi. Breathing is nonlabored. Abdomen: Soft, nontender, nondistended. Extremities: No lower extremity edema. Psych: Alert and oriented. Procedures None Urinary Catheter: No Vascular Central Line Catheter: No A/P Problem List: (1) GI bleed ICD Code: K92.2 Status: Acute (2) Anemia ICD Code: D64.9 Status: Acute (3) Diabetes mellitus, type II ICD Code: E11.9 Status: Acute (4) Portal vein thrombosis ICD Code: I81 Status: Acute (5) Coronary artery disease ICD Code: I25.10 Status: Acute (6) Chronic respiratory failure ICD Code: J96.10 Status: Acute (7) COPD (chronic obstructive pulmonary disease) ICD Code: J44.9 Status: Acute (8) Anxiety and depression ICD Code: F41.9 Status: Acute Assessment and Plan 1. GI bleed, acute on chronic anemia: Appreciate gastroenterology recommendations. Stop Eliquis. Continue Protonix. Monitor H&H. 2. Portal vein thrombosis: Appreciate GI recommendations. Patient had been placed on Eliquis, but that has been discontinued secondary to GI bleed. Follow- up at [facility]. 3. Cirrhosis of the liver: Chronic. 4. COPD with chronic respiratory failure: Continue supplemental oxygen. Continue bronchodilators. 5. Diabetes mellitus: Chronic. Monitor Accu-Cheks and cover with sliding scale insulin. 6. Coronary artery disease: Chronic, stable. Continue statin. No aspirin secondary to GI bleed. 7. Depression: Continue venlafaxine. 8. DVT prophylaxis: RONNA Sorto. Avoid chemical prophylaxis secondary to GI bleed. Discharge Planning Plan for discharge home today if H&H remains stable. Problem Qualifiers (1) GI bleed: Qualified Code: K92.2 - Gastrointestinal hemorrhage, unspecified gastrointestinal hemorrhage type Alex Naidu MD Nov 16, 2016 10:41
--- NOTE | 2016-11-16 11:12 | HHI.DCPOC ---
Discharge Care Plan Diagnosis: (1) Anxiety and depression (2) GI bleed (3) Diabetes mellitus, type II (4) Anemia (5) Portal vein thrombosis (6) Coronary artery disease (7) Chronic respiratory failure (8) COPD (chronic obstructive pulmonary disease) (9) Cirrhosis of liver (10) Hyperlipidemia Goals to Promote Your Health * To prevent worsening of your condition and complications * To maintain your health at the optimal level Directions to Meet Your Goals Take your medications as prescribed Follow your dietary instruction Follow activity as directed Keep your appointments as scheduled Take your immunizations and boosters as scheduled If your symptoms worsen call your PCP, if no PCP go to Urgent Care Center or Emergency Room Smoking is Dangerous to Your Health. Avoid second hand smoke Call the 24-hour hour crisis hotline for domestic abuse at Alex Naidu MD Nov 16, 2016 11:12
[2016-11-16] MEDS: NADOLOL 20 MG TAB PO SCH (20:24)
[2016-11-16] MEDS: ATORVASTATIN 40 MG TAB PO SCH (20:24)
[2016-11-17] VITALS: BP 124/68; PULSE 71; RESP 16; TEMP 96.6; O2SAT 98
[2016-11-17 04:00] VITALS: BP_SYST 90; BP_SYST 99; BP_DIAS 50; BP_DIAS 57; PULSE 74; RESP 16; TEMP 97.5; O2SAT 97
[2016-11-17] MEDS: PANTOPRAZOLE SODIUM 40 MG VIAL IV PUSH SCH (05:55)
[2016-11-17] MEDS: INSULIN ASPART SUPPLEMENTAL SCALE SQ SCH (05:59)
[2016-11-17 07:29] LABS: HEMATOCRIT 24.5 % (39.0-51.0)
[2016-11-17 07:40] LABS: REVIEW FLAG FINAL
[2016-11-17] MEDS: RESP: BUDESONIDE 0.5 MG/2 ML NEB NEB SCH (08:03)
[2016-11-17] MEDS: [UNRECOGNIZED DRUG - OTHER] INH SCH (08:03)
[2016-11-17 08:05] VITALS: O2SAT 93
[2016-11-17] MEDS ORDERED: FERR325T PO (09:21)
--- NOTE | 2016-11-17 09:27 | HHI.DS ---
cc: Gabriela Giles MD Discharge Summary Admission Date Nov 13, 2016 at 17:24 Discharge Date: Nov 17, 2016 Admitting Diagnosis gi bleed, cirrhosis (1) GI bleed ICD Code: K92.2 (2) Anemia ICD Code: D64.9 (3) Diabetes mellitus, type II ICD Code: E11.9 (4) Portal vein thrombosis ICD Code: I81 (5) Coronary artery disease ICD Code: I25.10 (6) Chronic respiratory failure ICD Code: J96.10 (7) COPD (chronic obstructive pulmonary disease) ICD Code: J44.9 (8) Anxiety and depression ICD Code: F41.9 Procedures None Brief History - From Admission 71-year-old male with history of Liver cirrhosis, Esophageal varices, Portal vein thrombosis on Eliquis, Anemia, Oral cancer s/p resection/radiation, COPD, Chronic Respiratory Failure on 3L NC, Diabetes mellitus, CAD with stent, Arthritis, Anxiety/depression, presents with a 3 day history of liquid black stools. Denies any bright red rectal bleeding. He's been experiencing intermittent lower abdominal pain described as mild cramping. Denies any nausea/ vomiting or hematemesis. He has a history of esophageal varices and has prior history of GI bleeding. His last endoscopy was 1 month ago and the patient was not bleeding at that time. He is currently on Eliquis for portal vein thrombosis however reportedly his unhairing machine operator Dr. Gresham at [facility] was supposed to change him from Eliquis to Pradaxa today. He denies taking any NSAIDs. Since his arrival to the ED, hemoglobin 10.2, hemoccult positive in the ED. The patient is known to [facility], Dr. Hendrix. He has no other medical complaints at this time. CBC/BMP: 11/17/16 0600 11/14/16 0500 Significant Findings Laboratory Tests Test 11/14/16 11/14/16 11/14/16 11/16/16 10:21 16:16 22:09 10:20 Hemoglobin 9.5 GM/DL 8.9 GM/DL 9.0 GM/DL 8.5 GM/DL (13.0-17.0) (13.0-17.0) (13.0-17.0) (13.0-17.0) Hematocrit 27.9 % 26.2 % 26.6 % 25.3 % (39.0-51.0) (39.0-51.0) (39.0-51.0) (39.0-51.0) White Blood Count 3.1 TH/MM3 (4.0-11.0) Red Blood Count 2.57 MIL/MM3 (4.50-5.90) Platelet Count 61 TH/MM3 (150-450) Test 11/17/16 06:00 Hemoglobin 8.5 GM/DL (13.0-17.0) Hematocrit 24.5 % (39.0-51.0) Imaging Last Impressions Abdomen CT 11/14/16 0000 Signed Impressions: Service Date/Time: Monday, November 14, 2016 18:40 - CONCLUSION: 1. There is a filling defect seen in the portal confluence characteristic of a thrombosed extending into the superior mesenteric vein, but no extension into the portal vein. 2. Esophageal and perisplenic varices. 3. Abnormal appearance to the right colon with diffuse prominent wall thickening and pericolonic fatty induration. No evidence of obstruction. Yohannes Tyler MD PE at Discharge General: No acute distress. Heart: Regular rate and rhythm. No murmur. Lungs: Clear to auscultation bilaterally. No wheezes, rales, or rhonchi. Breathing is nonlabored. Abdomen: Soft, nontender, nondistended. Extremities: No lower extremity edema. Psych: Alert and oriented. Pt update on day of discharge No complaints at this time. BP was low overnight, but patient remained asymptomatic. Has been ambulating to the bathroom without lightheadedness/ dizziness/dyspnea. No bleeding noted. Stool was loose yesterday, but no bloody or black stools. Hospital Course The patient was admitted for management of GI bleed. H&H were monitored closely. GI was consulted. Anticoagulation was discontinued. The patient's hemoglobin decreased, but stabilized. He did not require transfusion during this hospitalization. Abdominal CT showed portal vein thrombosis, which appeared to be unchanged. Gastroenterology contacted the patient's GI specialist at [facility] and discussed plans for outpatient colonoscopy. The patient was advised to start oral iron supplementation and follow up with his unhairing machine operator for IV iron infusion. He was cleared for discharge by gastroenterology. He was felt to be stable for discharge home. Pt Condition on Discharge: Stable Discharge Disposition: Discharge Home Discharge Time: > 30 minutes Discharge Instructions DIET: Follow Instructions for: Heart Healthy Diet Activities you can perform: Regular-No Restrictions Follow up Referrals: Gastroenterology - 1 Week with Chester Hendrix MD Oncology - 2 Weeks PCP Follow-up - 2 Weeks New Orders: CBC WITH DIFF - 2-3 Days New Medications: Ferrous Sulfate (Ferrous Sulfate) 325 Mg Tab 325 MG PO DAILY Nutritional Supplement #30 Ref 0 TAB Continued Medications: Ascorbic Acid (Vitamin C) 1,000 Mg Tab 1000 MG PO Nutritional Supplement Ref 0 TAB Atorvastatin (Atorvastatin) 40 Mg Tab 40 MG PO HS Cholesterol Management #90 Ref 0 TAB Budesonide Neb (Budesonide Neb) 0.5 Mg/2 Ml Neb 0.5 MG NEB BID NEB Breathing Treatment #30 Ref 0 NEBULE Cholecalciferol (D 5000) 5,000 Unit Cap 5000 UNITS PO DAILY Clonazepam (Clonazepam) 0.5 Mg Tab 0.5 MG PO DAILY PRN ANXIETY #60 Ref 0 TAB Cyanocobalamin (B-12) 1,000 Mcg Cap 1000 MCG PO DAILY Nutritional Supplement #1 Ref 0 BOTTLE Folic Acid (Folic Acid) 400 Mcg Tab 400 MCG PO DAILY Nutritional Supplement Ref 0 TAB Formoterol Neb (Perforomist Neb) 20 Mcg/2 Ml Neb 20 MCG NEB BID NEB COPD #60 Ref 0 NEBULE Hydrocortisone (Topical) (Cortizone-10 Eczema) 1 % Lot 1 APPLIC TOPICAL DAILY PRN JOCK ITCH Ipratropium-Albuterol Inh (Combivent Respimat Inh) 20-100 Shelter/Act Aero 1 PUFF INH QID PRN SHORTNESS OF BREATH #1 Ref 0 INHALER Iron Sucrose Inj (Venofer Inj) 20 Mg/Ml Inj Unknown Dose IV WEEKLY #1 VIAL Metformin (Metformin) 850 Mg Tab 850 MG PO BIDPC With meals Blood Sugar Management Ref 0 TAB Milk Thistle (Milk Thistle) 300 Mg Cap 300 MG PO BIDPC Nadolol (Nadolol) 20 Mg Tab 20 MG PO HS #90 Ref 0 TAB [place]-3 Fatty Acids (Fish Oil) 1,200 Mg Cap 1200 MG PO DAILY Pantoprazole (Pantoprazole) 40 Mg Tab 40 MG PO BID PRN prn #30 Ref 0 TAB Venlafaxine ER 24 HR (Venlafaxine ER 24 HR) 150 Mg Cap 150 MG PO DAILY #90 Ref 0 CAP Discontinued Medications: Dabigatran (Pradaxa) 150 Mg Cap 150 MG PO BID Blood Clot Prevention #60 Ref 0 CAP Alex Naidu MD Nov 17, 2016 09:27
--- NOTE | 2016-11-17 09:31 | HHI.GIFU ---
GI Follow-up Note Consult Follow-up Subjective: Patient laying in bed comfortably, no new complaints and stools still brown. Objective: PHYSICAL EXAMINATION: Vitals signs stable No fever ABDOMEN: Soft, rounded, nontender SKIN: warm and dry COUNTER FORMER: alert and oriented times three. Available Data (labs, X- Rays, Procedues) : ASSESSMENT/PLAN: 1. Cirrhosis 2. Anemia 3. Portal vein/SMV thrombosis 4. Abnormal CT abd&pelvis H&H stable. Discussed with Dr Naidu. 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 OK to discharge. Will sign off. It was a pleasure seeing Dayday Thompson Sr. Thank you for this consult. Entered by: Dylon Farnsworth MD Nov 17, 2016 09:31
[2016-11-17] MEDS: VENLAFAXINE HCL XR 75 MG CAP PO SCH (09:56)
[2016-11-17] MEDS: SODIUM CHLORIDE 0.9% FLUSH 10 ML FLUSH IV FLUSH SCH (09:56)
[2016-11-21] MEDS ORDERED: VITA60003 (15:34)
[2016-11-21] MEDS ORDERED: IRONCAP2 PO (15:34)
[2016-11-21] MEDS ORDERED: VITA600C3 PO (15:34)
[2016-11-21] MEDS ORDERED: VITACRE (15:34)
[2016-11-21] MEDS ORDERED: CLON0.5T PO (15:41)
[2016-12-07] MEDS ORDERED: NADO20TA PO (11:19)
[2016-12-19] MEDS ORDERED: VENL150C39 PO (11:32)
[2017-01-03] MEDS ORDERED: PANT40TA3 PO (16:40)
[2017-01-10] MEDS ORDERED: METF850T PO ×2 (13:23→16:14)
[2017-01-11] MEDS ORDERED: WARF-20 PO (10:26)
[2017-01-31] MEDS ORDERED: PANT40TA3 PO (13:21)
== END 2016-11-17 10:54 | disposition home or self-care (01) ==
LOC: NEPA 12:30 → INTOOBSV 17:24 → NEDA 17:24 → HOCA 20:41
PROVIDERS: ADMIT Family Medicine; ATTEND Family Medicine
DX: K55.069 Acute infarction of intestine, part and extent unspecified (principal); K92.1 Melena; K70.30 Alcoholic cirrhosis of liver without ascites; I85.00 Esophageal varices without bleeding; I42.9 Cardiomyopathy, unspecified; J44.9 Chronic obstructive pulmonary disease, unspecified; E11.9 Type 2 diabetes mellitus without complications; D69.6 Thrombocytopenia, unspecified; R42 Dizziness and giddiness; I25.10 Atherosclerotic heart disease of native coronary artery without angina pectoris; K76.6 Portal hypertension; K31.89 Other diseases of stomach and duodenum; I81 Portal vein thrombosis; J96.10 Chronic respiratory failure, unspecified whether with hypoxia or hypercapnia; F10.21 Alcohol dependence, in remission; D50.9 Iron deficiency anemia, unspecified; Z99.81 Dependence on supplemental oxygen; Z79.01 Long term (current) use of anticoagulants; Z95.5 Presence of coronary angioplasty implant and graft; Z86.718 Personal history of other venous thrombosis and embolism
CPT/HCPCS: 74160; 80048; 80053; 82948; 85014; 85018; 85025; 85027; 85610; 85730; 86850; 86900; 86901; 94640; 94664; 96361; 96374; 96375; 99285; C9113; G0378; J1815; J2270; J2405; J7030; J7626; Q9963; Q9967